=== PATIENT | female | born 1950 | race African-American/Black ===

== ENCOUNTER 2017-12-31 08:06 | Outpatient (CLI) | payer MEDICARE, MEDICAID ==
--- NOTE | 2017-12-31 10:49 | CT ---
CT ABDOMEN AND PELVIS WITH CONTRAST: Date: 12/31/17 HISTORY: Weight loss. Diarrhea. COMPARISON: CT from 2009. 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 These do not measure over 4.0 cm, although the intrapolar right angiomyolipoma measures up to 3.3 cm, similar to the comparison examination. The mildly complex renal cysts in the left kidney are mildly increased in size. Cyst inferior pole right kidney also mi ldly increased in size. Splenic hypodensity is mildly increased in size. No dilated loops of large or small bowel. No free intraperitoneal gas or fluid. Mild diverticular dis ease of the sigmoid colon without active inflammation. The aortoiliac contour is nonaneurysmal. Advanced facet arthropathy of the lower lumbar spine L3-4, L 4-5, and L5-S1. The lung bases are clear. No pericardial effusion. IMPRESSION: 1. Mild size increased of the hypodensities of both kidneys. These may represent enlarging benign cy sts, although due to increase in size and low grade heterogeneity, follow-up MRI renal protocol in 6 months to 1 year is recommended. 2. Similar size of largest right renal angiomyolipoma. 3. Mild diverticular disease sigmoid colon without active current inflammation. 4. Advanced facet arthropathy lower lumbar spine. POS: DEEPAK
== END 2017-12-31 08:07 | disposition home or self-care (01) ==
LOC: CT 08:06
PROVIDERS: ATTEND Internal Medicine Gastroenterology
DX: R63.4 Abnormal weight loss (principal); R10.10 Upper abdominal pain, unspecified; R19.7 Diarrhea, unspecified; R11.0 Nausea; E11.69 Type 2 diabetes mellitus with other specified complication; D17.71 Benign lipomatous neoplasm of kidney; K57.30 Diverticulosis of large intestine without perforation or abscess without bleeding; M46.96 Unspecified inflammatory spondylopathy, lumbar region
CPT/HCPCS: 74177; 82565

== ENCOUNTER 2018-09-20 10:41 | Outpatient (CLI) | payer MEDICARE, MEDICAID ==
--- NOTE | 2018-09-20 13:33 | ULT ---
STANDARD BILATERL RENAL ULTRASOUND: HISTORY: Followup. COMPARISON: CT from 12/31/2017. TECHNIQUE: Real-time, pugh-scale, and color evaluation of the kidneys and urinary bladder is performed. FINDINGS: The right kidney measures 12.6 x 7.2 x 6 cm. The left kidney measures 11.1 x 6 x 6 cm. Right renal angiomyolipoma is similar in size, measuring up to 3.1 cm. Multiple cysts, inferior pole, right kidn ey, largest measuring up to 2.8 cm. These are similar. The left interpolar 3.8 cm cyst is similar. The left renal AML is not well seen. IMPRESSION: Similar appearance of the right renal angiomyolipoma, as well as bilateral cysts. POS: DEEPAK
== END 2018-09-20 10:42 | disposition home or self-care (01) ==
LOC: BICULT 10:41
PROVIDERS: ATTEND Physician Assistant Medical
DX: K58.9 Irritable bowel syndrome, unspecified (principal); R93.5 Abnormal findings on diagnostic imaging of other abdominal regions, including retroperitoneum; N28.1 Cyst of kidney, acquired; D17.71 Benign lipomatous neoplasm of kidney
CPT/HCPCS: 76770

== ENCOUNTER 2020-01-31 13:12 | Inpatient (IN) | payer MEDICARE, MEDICAID, OTHER ==
[2020-01-31] MEDS ORDERED: Azithromycin 250 MG TAB ONE (13:55)
[2020-01-31] MEDS ORDERED: cefTRIAXone\\ROCEPHIN 2 GM VIAL ONE (13:55)
[2020-01-31] MEDS ORDERED: Azithromycin 500 MG VIAL ONE (13:59)
[2020-01-31 14:21] LABS: #Eosinphils 0.1 thou/uL (0.0-0.7); #Lymphocytes 1.3 thou/uL (1.20-3.40); #Monocytes 0.6 thou/uL (0.11-0.59); #Neutrophils 7.1 thou/uL (1.40-6.50); %Basophils 0.1 % (0.0-1.0); %Eosinophils 0.8 % (0.0-10.0); %Lymphocytes 14.4 % (21.0-51.0); %Monocytes 6.6 % (0.0-10.0); %Neutrophils 78.1 % (42.0-75.0); Hemoglobin 11.8 g/dL (12.0-16.0); Mean Corpuscular HGB CONC 31.5 g/dL (32.0-36.0); Mean Corpuscular Hemoglobin 25.7 pg (27.0-31.0); Mean Corpuscular Volume 81.8 fL (78.0-98.0); Mean Platelet Volume 8.1 fL (7.4-10.4); Platelet Count 429 thou/uL (130-400); RBC Distribution Width 14.4 % (11.5-14.5); Red Blood Cell (RBC) Count 4.59 mill/uL (4.20-5.40)
--- NOTE | 2020-01-31 14:49 | RAD ---
PORTABLE CHEST ONE VIEW: 01/31/20 at 2:34 p.m. HISTORY: Cough, generalized weakness. FINDINGS/IMPRESSION: The heart size is enlarged. There are bibasilar infiltrates and probable accompanying small effusions . No pneumothoraces are seen. POS: OFF
[2020-01-31 14:51] LABS: ALT (SGPT) 13 U/L (8-55); AST (SGOT) 21 U/L (5-34); Albumin 3.6 g/dL (3.4-4.8); Alkaline Phosphatase 102 U/L (40-110); Anion Gap 18 mmol/L (10-20); BUN (Urea Nitrogen) 19 mg/dL (9.8-20.1); Bilirubin, Total 0.6 mg/dL (0.2-1.2); Calc. Creatinine Clearance 0 mL/min (70-130); Calcium 8.9 mg/dL (7.8-10.44); Carbon Dioxide 25 mmol/L (23-31); Chloride 101 mmol/L (98-107); Estimated GFR-MDRD 53; Globulin 4.5 g/dL (2.4-3.5); Glucose 245 mg/dL (80-115); Lipase 17 U/L (8-78); Potassium 3.3 mmol/L (3.5-5.1); Protein, Total 8.1 g/dL (6.0-8.3); Sodium 141 mmol/L (136-145)
[2020-01-31 17:24] LABS: Bilirubin Negative (Negative); Blood, Urine Negative (Negative); Clarity Clear (Clear); Glucose, Urine (Dipstick) Normal (Negative); Ketone, Urine 20 mg/dL (Negative); Leukocyte 25 Leu/uL (Negative); Nitrite Negative (Negative); Protein, Urine (Dipstick) 70 mg/dL (Neg-Trace); RBC/HPF 0-3 HPF (0-3); Squamous Epithelial 0-3 HPF (0-3); pH, Urine 5.5 (5.0-9.0)
[2020-01-31 17:26] LABS: Bacteria/HPF 1+ HPF (None Seen)
[2020-01-31] MEDS ORDERED: Acetaminophen 650 MG Suppository PR PRN (17:34)
[2020-01-31] MEDS ORDERED: Calcium Carbonate 500 MG ChewTAB PO PRN (17:34)
[2020-01-31] MEDS ORDERED: Ondansetron PF 4 MG/2 ML Vial IVP PRN (17:34)
[2020-01-31] MEDS ORDERED: Senokot S 8.6-50 MG TAB PO PRN (17:34)
[2020-01-31] MEDS ORDERED: Ondansetron ODT 4 MG TAB PO PRN (17:34)
[2020-01-31] MEDS ORDERED: Dextrose 5% in Water 1,000 ML IV PRN (17:40)
[2020-01-31] MEDS ORDERED: Dextrose 50% Abboject 50 ML SYRINGE SLOW IVP PRN (17:40)
[2020-01-31] MEDS ORDERED: HumaLOG 300 UNITS/3 ML VIAL SC PRN (17:40)
--- NOTE | 2020-01-31 18:52 | HP ---
PRIMARY CARE PHYSICIAN: None. HISTORY OF PRESENT ILLNESS: The patient is a 69-year-old female with a past medical history significant for hypertension, hyperlipidemia, diabetes 2, noninsulin dependent, and GERD, who presents to the ER for the above complaint. The patient reports over the past several weeks having increased generalized weakness and some abdominal discomfort. She reports that she was diagnosed with bronchitis approximately 2 weeks ago. She was placed on amoxicillin 875, a 10-day course twice a day, which she has not completed yet. She reports that she forgets to take the medication sometimes because she just feels so bad. She reports associated decreased appetite and some shortness of breath. She denies any chest pain, heart palpitations or swelling to her lower extremities. She denies any fever or chills. She denies any nausea, vomiting, diarrhea or any dysuria. Her family called EMS. When EMS presented on the scene, the patient had a stable blood pressure, was afebrile. She was tachycardic at 107 with a SpO2 of 98% on room air. In the ER , the patient was afebrile, stable blood pressure, tachycardic 106, tachypneic, 22 respirations per minute, 99% on room air, 8/10 pain. EKG was sinus tach, 105 heart rate, with right bundle-branch block. Troponin was 0.019. Chest x-ray was positive for bibasilar infiltrates. WBCs were 9 and lactic acid of 1.1. The patient was given 1 L of normal saline, Rocephin, and azithromycin IV piggyback and will be admitted to the floor. PAST MEDICAL HISTORY: 1. Hypertension. 2. Hyperlipidemia. 3. Diabetes type 2, non-insulin dependent. 4. GERD. 5. Osteoarthritis. PAST SURGICAL HISTORY: 1. Partial hysterectomy. 2. . 3. Neck tumor surgery. SOCIAL HISTORY: The patient lives with family at home. She has no history of smoking, illicit drug use or alcohol intake. She ambulates without any assistive devices. FAMILY HISTORY: Contributory for hypertension, contributory for cardiac disease , contributory for diabetes. ALLERGIES: 1. IODINE. 2. TRAMADOL. HOME MEDICATIONS: 1. [place] 7.5mg/325mg one tab p.o. daily. 2. ProAir HFA 90 mcg inhaler 2 puffs q.4 p.r.n. shortness of breath and wheezing. 3. Amlodipine 5 mg p.o. daily. 4. Aspirin 81 mg p.o. daily. 5. Crestor 10 mg p.o. daily. 6. Glipizide/metformin 5/500 mg 2 tabs p.o. b.i.d. REVIEW OF SYSTEMS: All review of systems are negative unless otherwise stated in HPI. PHYSICAL EXAMINATION: VITAL SIGNS: Temperature 98.6, blood pressure 142/83, pulse 100, respirations 20, 100% on room, and 0/10 pain. CONSTITUTIONAL: The patient is alert and oriented to person, place, and time. Uncomfortable, but nontoxic in appearance. HEAD: Atraumatic and normocephalic. EYES: PERRLA. Extraocular muscles intact. Sclerae nonicteric. NECK: Full range of motion. No cervical spinous tenderness. No JVD. No cervical adenopathy. ENT: EACs patent bilaterally. TMs intact. Nares patent bilaterally. Oropharynx is clear. Uvula midline. Tacky mucous membranes. No oral lesions. RESPIRATORY/CHEST: Respirations are even. Nonlabored. Diminished in the bilateral lower lobes. No rhonchi, wheezes or rales. CARDIOVASCULAR: S1 and S2 appreciated. No murmurs, rubs or gallops. ABDOMEN: Abdomen is soft and nontender. Active bowel sounds. No guarding. No rigidity. No rebound. Negative Rovsing sign. Negative Paris sign. BACK: Full range of motion. No central spinous tenderness. No CVA tenderness. EXTREMITIES: Upper extremities; full range of motion, strength intact, sensation intact, palpable radial pulses. Lower extremities; full range of motion, normal strength, sensation intact, palpable pedal pulses, no swelling. NEUROLOGIC: The patient is alert and oriented to person, place, and time. Moves all extremities well. No focal motor deficits. Steady gait. PSYCHIATRIC: Normal affect. The patient is alert and oriented to person, place , and time. LABS AND DIAGNOSTICS: EKG was sinus tachycardia at 105, was an incomplete right bundle-branch block, no ST elevations. Chest x-ray was positive for bibasilar infiltrates. Sodium 141, potassium 3.3, chloride 101, carbon dioxide 25, BUN 19 , creatinine 1.23, and glucose 245. Lactic acid 1.1, total bilirubin 0.6, AST 21 , ALT 13, and alk phos 102. Troponin 0.019. Lipase is 17. WBCs 9, hemoglobin 11.8, hematocrit 37.5, and platelets 429. IMPRESSION AND PLAN: 1. Community-acquired pneumonia. We will admit the patient to medical floor inpatient status. Expected length of stay at least 2 midnights. The patient presented status post bronchitis for the past 2 weeks on amoxicillin, failed outpatient therapy. In the ER, the patient was tachycardic and tachypneic with a normal O2 saturation. WBCs were 9. Lactic acid of 1.1. We will order blood and urine cultures. We will continue azithromycin and Rocephin IV piggyback. We will continue IV fluid resuscitation. COVID test is pending. We will place the patient on droplet precautions for now until it is ruled out. 2. Sepsis, likely secondary to problem #1. 3. Hypokalemia, 3.3, relatively low. We will recheck in the a.m. and we will check a magnesium level. 4. Acute kidney injury. The patient presented with a creatinine of 1.23, baseline appears to be about 1 to 1.1, so it is mild. We will give IV fluid resuscitation. Recheck in the a.m. 5. Diabetes type 2, non-insulin dependent. The patient reported with a blood glucose of 245. The patient takes oral glipizide and metformin combination. We will hold for now. We will start moderate sliding scale with a.c. and at bedtime Accu- Cheks. 6. Hypertension. The patient takes amlodipine at home. We will restart when reconciled by nursing. 7. Hyperlipidemia. The patient takes Crestor. We will restart home medication when reconciled by nursing. 8. Gastroesophageal reflux disease. We will place the patient on Pepcid b.i.d. 9. Heparin for deep venous thrombosis prophylaxis. 10. Pepcid for gastrointestinal prophylaxis. 11. The patient is a full code. Her medical contact is going to be her son, Danie Arellano, [phone]. 12. Discussed the case with Dr. Conway. Job ID: [id number] MTDD
[2020-01-31 19:26] LABS: Troponin I Less than 0.010 ng/mL (< 0.028)
[2020-01-31] MEDS ORDERED: Magnesium 2 GM/50 ML 2 GM in Premix Bag 1 BAG IVPB SCH (19:45)
[2020-01-31 20:05] VITALS: BMI 39.5
[2020-01-31] MEDS ORDERED: Potassium Chloride 20 MEQ TAB PO SCH (20:30)
[2020-01-31] MEDS ORDERED: Dexamethasone 4 mg/ml Vial SLOW IVP SCH (20:30)
[2020-01-31] MEDS: Sodium Chloride 0.9% 1,000 ML IV SCH (20:48)
[2020-01-31] MEDS: Acetaminophen 325 MG TAB PO PRN (20:49)
[2020-01-31] MEDS: Famotidine 20 MG TAB PO SCH (20:49)
[2020-01-31] MEDS: Guaifenesin DM 100-10/5 ML UDCUP PO PRN (20:50)
[2020-01-31] MEDS ORDERED: Heparin 5,000 UNITS/ML VIAL SC SCH (21:00)
[2020-01-31] MEDS ORDERED: Enoxaparin Sodium 40 MG/0.4 ML SYRINGE SC SCH (21:00)
[2020-01-31 21:37] LABS: Troponin I 0.013 ng/mL (< 0.028)
--- NOTE | 2020-01-31 23:05 | CT ---
CT CHEST WITHOUT CONTRAST CLINICAL INDICATION: Generalized weakness and cough. Recently diagnosed with bronchitis. Bilateral infiltrates. COMPARISON: CT abdomen on 12/31/2017 FINDINGS: Aorta: Lack of intravenous contrast limits evaluation of the vascular structures, but the thoracic ao rta is normal in caliber with vascular calcification seen. Coronary artery calcifications are also visualized. Lungs: There are multiple peripherally located patchy parenchymal densities seen throughout the lungs bilaterally. This finding was not seen on examination in 2018. Infectious process is suggested. Viral pneumonitis is a possibility. No pleural effusion is evident. Mediastinum: Limited evaluation due to lack of intravenous contrast, no definite enlarged mediastinal lymph nodes are appreciated. Thyroid gland: Normal nonenhanced appearance where seen. Osseous structures: Degenerative changes are present in the spine. Chest wall: No abnormality visualized. Upper abdomen: Grossly normal nonenhanced CT appearance. IMPRESSION: Patchy peripheral densities seen throughout the lungs are worrisome for infectious process and possib ly viral pneumonitis.
[2020-02-01] MEDS: Sodium Chloride 0.9% 1,000 ML IV SCH ×3 (01:19→14:18)
[2020-02-01] MEDS: HumaLOG 300 UNITS/3 ML VIAL SC PRN ×2 (05:56→11:07)
[2020-02-01 06:34] LABS: #Eosinphils 0.1 thou/uL (0.0-0.7); #Lymphocytes 1.6 thou/uL (1.20-3.40); #Monocytes 0.5 thou/uL (0.11-0.59); #Neutrophils 3.2 thou/uL (1.40-6.50); %Basophils 0.4 % (0.0-1.0); %Eosinophils 2.7 % (0.0-10.0); %Lymphocytes 28.9 % (21.0-51.0); %Monocytes 9.1 % (0.0-10.0); %Neutrophils 58.9 % (42.0-75.0); Hemoglobin 10.5 g/dL (12.0-16.0); Mean Corpuscular HGB CONC 30.5 g/dL (32.0-36.0); Mean Corpuscular Hemoglobin 24.9 pg (27.0-31.0); Mean Corpuscular Volume 81.6 fL (78.0-98.0); Mean Platelet Volume 8.1 fL (7.4-10.4); Platelet Count 435 thou/uL (130-400); RBC Distribution Width 14.5 % (11.5-14.5); White Blood Cell (WBC) Count 5.4 thou/uL (4.8-10.8)
[2020-02-01 07:01] LABS: Anion Gap 12 mmol/L (10-20); BUN (Urea Nitrogen) 15 mg/dL (9.8-20.1); Calc. Creatinine Clearance 108 mL/min (70-130); Calcium 8.3 mg/dL (7.8-10.44); Carbon Dioxide 26 mmol/L (23-31); Chloride 105 mmol/L (98-107); Estimated GFR-MDRD 77; Glucose 181 mg/dL (80-115); Potassium 3.4 mmol/L (3.5-5.1); Sodium 140 mmol/L (136-145)
[2020-02-01] MEDS: Famotidine 20 MG TAB PO SCH ×2 (08:27→20:39)
[2020-02-01] MEDS: Saccharomyces boulardii 250 MG CAP PO SCH (08:27)
[2020-02-01] MEDS: Acetaminophen 325 MG TAB PO PRN (11:07)
[2020-02-01] MEDS ORDERED: cefTRIAXone\\ROCEPHIN 1 GM in Sodium Chloride 0.9% 100 ML IVPB SCH (14:00)
--- NOTE | 2020-02-01 14:09 | CON ---
DATE OF CONSULTATION: 02/01/2020 REASON FOR CONSULTATION: COVID pneumonia. HISTORY OF PRESENT ILLNESS: A 69-year-old with history of type 2 diabetes, hypertension, and hyperlipidemia, who has been sick with respiratory symptoms, anorexia, and nausea for the past week, failed antimicrobial therapy in the outpatient setting, was admitted as a COVID positive test, feeling better now. No headaches. She has good sense of smell and she is not dyspneic. She is able to speak in full sentences. No abdominal pain. No dysuria. No joint symptoms or skin disorder. No neurological symptoms. PAST MEDICAL HISTORY: 1. Type 2 diabetes. 2. GERD. 3. Hyperlipidemia. 4. Hypertension. SURGICAL HISTORY: 1. Neck mass removed, benign. 2. . 3. Hysterectomy. SOCIAL HISTORY: Lives in [place]. Never smoker. Does not drink alcoholic beverages. ALLERGIES: IODINE AND TRAMADOL. MEDICATIONS: 1. P.r.n. medications. 2. Azithromycin. 3. Rocephin. 4. Enoxaparin. 5. Glucagon. 6. Insulin. 7. Ondansetron. PHYSICAL EXAMINATION: VITAL SIGNS: She is afebrile now, T-max was 99.5, BP 150/70, pulse 91, breathing 16 times a minute, O2 sats started at 100 on room air and now down to 93 on room air. GENERAL: She appears in no distress. SKIN: Normal. There is no lymphadenopathy. HEENT: Ocular movements conjugate. Oral cavity with quite a few missing teeth. Oral mucosa is normal. NECK: Supple. No jugular vein distention. LUNGS: Fairly clear breath sounds. HEART: S1 and S2. Regular rate. No S3 or S4. ABDOMEN: Soft, not distended or tender. No ascites. No bladder distention. EXTREMITIES: No joint inflammatory activity. Pulses are 1+ in dorsalis pedis. Moves extremities equally. NEUROLOGIC: She is awake, oriented, follows commands. Good recollection. Speech is normal. No delusional thinking process. LABORATORY STUDIES: White cell count 9.0 and 5.4, hemoglobin 11.8, platelets 429, 78% neutrophils, and lymphocyte count is 1.6. D-dimer 0.96. CRP 23. Ferritin 580. COVID positive. Urinalysis with 4 to 6 wbc's. A chest x-ray with bibasilar infiltrates. CT of chest with patchy peripheral densities. ASSESSMENT: 1. Hypertension. 2. Diabetes. 3. COVID pneumonia, mild. DISCUSSION: The patient fits the category for mild COVID infection. Her chance for deterioration to critical in the next few days is about 59% to 60% and will need to closely monitor her O2 needs and start Decadron and remdesivir accordingly. If she has remained stable, she will be eligible for discharge planning. Continue monitoring inflammatory markers. Job ID: [id number]
[2020-02-01] MEDS ORDERED: Azithromycin 500 MG in Sodium Chloride 0.9% 250 ML 250 ML IVPB SCH (15:00)
--- NOTE | 2020-02-01 18:08 | PDOC.HOSPP ---
- Subjective Encounter Date: 02/01/20 Encounter Time: 14:00 Subjective: Patient seen and examined for COVID Pneumonia. Cough with mild production. SOB on exertion. No CP. No new complaints. No overnight events - Objective Vital Signs & Weight: Vital Signs (12 hours) Temp Pulse Resp BP Pulse Ox 02/01/20 16:00 98 F 89 18 172/79 H 94 L 02/01/20 08:00 98.6 F 83 16 167/79 H 93 L Weight Weight 245 lb 1 oz I&O: 01/31/20 02/01/20 02/02/20 06:59 06:59 06:59 Intake Total 1605 1800 Balance 1605 1800 Result Diagrams: 02/01/20 05:54 02/01/20 05:55 Additional Labs: Accuchecks 02/01/20 02/01/20 02/01/20 16:33 11:03 04:55 POC Glucose 142 H 207 H 191 H 01/31/20 20:59 POC Glucose 177 H Microbiology 01/31/20 16:55 Urine clean catch Urine Culture - Preliminary 01/31/20 13:57 Venous blood - Right Hand Blood Culture - Preliminary Specimen has been received and culture in progress. No Growth to date. 01/31/20 13:57 Venous blood - Left Hand Blood Culture - Preliminary Specimen has been received and culture in progress. No Growth to date. Laboratory Tests 01/31/20 01/31/20 01/31/20 13:59 16:54 21:01 D-Dimer Potassium 3.3 L Ferritin C-Reactive Protein 23.60 H Procalcitonin SARS-CoV-2 Rap RNA(RT-PCR) DETECTED A* 01/31/20 01/31/20 02/01/20 21:01 21:01 05:54 D-Dimer 0.96 H Potassium Ferritin 580.30 H C-Reactive Protein Procalcitonin 0.10 SARS-CoV-2 Rap RNA(RT-PCR) Radiology Reviewed by me: Yes (CT chest - Pneumonia) Hospitalist ROS - Review of Systems Cardiovascular: denies: chest pain, palpitations, orthopnea, paroxysmal noc. dyspnea, edema, light headedness, other Gastrointestinal: denies: nausea, vomiting, abdominal pain, diarrhea, constipation, melena, hematochezia, other - Medication Medications: Active Medications Generic Name Dose Route Start Last Admin Trade Name Freq PRN Reason Stop Dose Admin Acetaminophen 650 mg 01/31/20 17:34 02/01/20 11:07 Tylenol PO 650 mg Q4H PRN Administration Headache/Fever/Mild Pain (1-3) Enoxaparin Sodium 40 mg 01/31/20 21:00 01/31/20 20:49 Lovenox SC 40 mg 2100 RHONDA Administration Famotidine 20 mg 01/31/20 21:00 02/01/20 08:27 Pepcid PO 20 mg BID RHONDA Administration Guaifenesin/Dextromethorphan 15 ml 01/31/20 17:34 01/31/20 20:50 Robitussin Dm PO 15 ml Q4H PRN Administration Cough Insulin Human Lispro 0 units 01/31/20 17:40 02/01/20 11:07 Humalog SC 2 unit .MODERATE SLIDING SC PRN Administration Moderate Correctional Scale Saccharomyces Boulardii 250 mg 02/01/20 09:00 02/01/20 08:27 Florastor PO 250 mg DAILY RHONDA Administration - Exam General Appearance: ill appearing Neck: supple, no JVD Heart: RRR, no gallops, no rubs, normal peripheral pulses Respiratory: no ronchi, normal chest expansion, rales, rhonchi Gastrointestinal: soft, non-tender, non-distended, normal bowel sounds Extremities: no cyanosis, no clubbing, no edema Skin: normal turgor, no lesions Neurological: no new deficit Psychiatric: normal affect, A&O x 3 Hosp A/P - Plan DVT proph w/lovenox (bid), DVT proph w/SCDs Sepsis due to COVID Pneumonia - POA LYNNETTE on CKD 2 UTI Hypokalemia Hypomagnsemia Obesity BMI 39.6 HTN HLD DM2 GERD Chronic pain syndrome PLAN: DC IVF Restart home meds including ASA, Amlodipine and diabetic meds ID input appreciated Replace Potassium Atbx for UTI Monitor infl markers AM labs Cont other meds as above Change Lovenox to BID due to high risk of DVT with COVID Cont sliding scale
[2020-02-01] MEDS ORDERED: HYDROcodone/Acetaminophen 7.5/325 mg Tablet PO PRN (18:23)
[2020-02-01] MEDS ORDERED: PROVENTIL INHALER 6.7 G (200 INHALATIONS) INH PRN (18:23)
[2020-02-01] MEDS ORDERED: hydrALAZINE 20 MG/ML VIAL SLOW IVP PRN (18:25)
[2020-02-01] MEDS ORDERED: Amlodipine 5 MG TAB PO SCH (18:45)
[2020-02-01] MEDS: Cefdinir 300 MG CAP PO SCH (20:38)
[2020-02-01] MEDS: Ascorbic Acid 500 mg Chewable Tablet PO SCH (20:38)
[2020-02-01] MEDS: Enoxaparin Sodium 40 MG/0.4 ML SYRINGE SC SCH (20:39)
[2020-02-01] MEDS: guaiFENesin ER 600 MG TAB PO SCH (20:39)
[2020-02-01] MEDS: Guaifenesin DM 100-10/5 ML UDCUP PO PRN (20:40)
[2020-02-01] MEDS: Zinc Sulfate 220 MG CAP PO SCH (20:40)
[2020-02-01] MEDS ORDERED: Dexamethasone 4 mg/ml Vial SLOW IVP SCH (21:00)
[2020-02-01] MEDS ORDERED: Prevnar 13-Val Conj/PF 0.5 ML SYRINGE IM ONE (21:00)
[2020-02-02 05:38] LABS: #Basophils 0.1 thou/uL (0.0-0.2); #Eosinphils 0.3 thou/uL (0.0-0.7); #Lymphocytes 2.2 thou/uL (1.20-3.40); #Monocytes 0.6 thou/uL (0.11-0.59); #Neutrophils 3.6 thou/uL (1.40-6.50); %Basophils 0.8 % (0.0-1.0); %Eosinophils 4.9 % (0.0-10.0); %Lymphocytes 32.3 % (21.0-51.0); %Monocytes 8.4 % (0.0-10.0); %Neutrophils 53.6 % (42.0-75.0); Hemoglobin 10.8 g/dL (12.0-16.0); Mean Corpuscular HGB CONC 30.9 g/dL (32.0-36.0); Mean Corpuscular Hemoglobin 25.5 pg (27.0-31.0); Mean Corpuscular Volume 82.7 fL (78.0-98.0); Mean Platelet Volume 7.6 fL (7.4-10.4); Platelet Count 506 thou/uL (130-400); RBC Distribution Width 14.4 % (11.5-14.5); Red Blood Cell (RBC) Count 4.24 mill/uL (4.20-5.40); White Blood Cell (WBC) Count 6.8 thou/uL (4.8-10.8)
[2020-02-02 05:58] LABS: ALT (SGPT) 11 U/L (8-55); AST (SGOT) 20 U/L (5-34); Albumin 3.3 g/dL (3.4-4.8); Alkaline Phosphatase 96 U/L (40-110); Anion Gap 13 mmol/L (10-20); BUN (Urea Nitrogen) 8 mg/dL (9.8-20.1); Bilirubin, Total 0.4 mg/dL (0.2-1.2); CRP (Inflammatory) 15.27 mg/dL (= or < 0.5); Calc. Creatinine Clearance 115 mL/min (70-130); Calcium 8.6 mg/dL (7.8-10.44); Carbon Dioxide 25 mmol/L (23-31); Chloride 106 mmol/L (98-107); Estimated GFR-MDRD 83; Glucose 127 mg/dL (80-115); Potassium 3.4 mmol/L (3.5-5.1); Protein, Total 7.3 g/dL (6.0-8.3); Sodium 141 mmol/L (136-145)
[2020-02-02 06:24] VITALS: TEMP 98.5
[2020-02-02] MEDS ORDERED: METFORMIN HCL PO SCH (08:00)
[2020-02-02] MEDS ORDERED: GLIPIZIDE PO SCH (08:00)
[2020-02-02] MEDS: Aspirin 81 mg Enteric Coated Tablet PO SCH (08:47)
[2020-02-02] MEDS: Cefdinir 300 MG CAP PO SCH ×2 (08:47→20:36)
[2020-02-02] MEDS: Famotidine 20 MG TAB PO SCH ×2 (08:48→20:36)
[2020-02-02] MEDS: Amlodipine 5 MG TAB PO SCH (08:49)
[2020-02-02] MEDS: guaiFENesin ER 600 MG TAB PO SCH ×2 (08:49→20:36)
[2020-02-02] MEDS: Rosuvastatin 10 MG TAB PO SCH (08:49)
[2020-02-02] MEDS: Saccharomyces boulardii 250 MG CAP PO SCH (08:50)
[2020-02-02] MEDS: metFORMIN 500 MG TAB PO SCH ×2 (08:50→16:38)
[2020-02-02] MEDS: glipiZIDE 5 MG TAB PO SCH ×2 (08:51→16:38)
[2020-02-02] MEDS: Enoxaparin Sodium 40 MG/0.4 ML SYRINGE SC SCH (08:51)
--- NOTE | 2020-02-02 18:40 | PDOC.HOSPP ---
- Subjective Encounter Date: 02/02/20 Encounter Time: 15:30 Subjective: Patient seen and examined for Sepsis. Feeling better. Mild cough. Mild SOB on exertion. No other complaints. No overnight events - Objective Vital Signs & Weight: Vital Signs (12 hours) Temp Pulse Resp BP Pulse Ox 02/02/20 08:49 90 02/02/20 08:00 98.5 F 90 18 146/79 H 98 Weight Weight 245 lb 1 oz I&O: 02/01/20 02/02/20 02/03/20 06:59 06:59 06:59 Intake Total 1605 2280 Balance 1605 2280 Result Diagrams: 02/03/20 06:20 02/03/20 06:20 Additional Labs: Accuchecks 02/02/20 02/02/20 02/02/20 16:36 12:56 06:16 POC Glucose 215 H 127 H 150 H 02/01/20 20:52 POC Glucose 140 H Laboratory Tests 01/31/20 01/31/20 02/02/20 21:01 21:01 05:19 Ferritin 580.30 H C-Reactive Protein 23.60 H 15.27 H 02/02/20 05:19 Ferritin 574.53 H C-Reactive Protein Radiology Reviewed by me: Yes (Chest CT - Pneumonia) Hospitalist ROS - Review of Systems Cardiovascular: denies: chest pain, palpitations, orthopnea, paroxysmal noc. dyspnea, edema, light headedness, other Gastrointestinal: denies: nausea, vomiting, abdominal pain, diarrhea, constipation, melena, hematochezia, other - Medication Medications: Active Medications Generic Name Dose Route Start Last Admin Trade Name Yfnq PRN Reason Stop Dose Admin Acetaminophen 650 mg 01/31/20 17:34 02/01/20 11:07 Tylenol PO 650 mg Q4H PRN Administration Headache/Fever/Mild Pain (1-3) Amlodipine Besylate 5 mg 02/02/20 09:00 02/02/20 08:49 Norvasc PO 5 mg DAILY RHONDA Administration Ascorbic Acid 1,000 mg 02/01/20 21:00 02/01/20 20:38 Vitamin C PO 1,000 mg HS RHONDA Administration Aspirin 81 mg 02/02/20 09:00 02/02/20 08:47 Ecotrin PO 81 mg DAILY RHONDA Administration Cefdinir 300 mg 02/01/20 21:00 02/02/20 08:47 Omnicef PO 02/03/20 21:01 300 mg BID RHONDA Administration Enoxaparin Sodium 40 mg 02/01/20 21:00 02/02/20 08:51 Lovenox SC 40 mg 0900,2100 RHONDA Administration Famotidine 20 mg 01/31/20 21:00 02/02/20 08:48 Pepcid PO 20 mg BID RHONDA Administration Glipizide 5 mg 02/02/20 08:00 02/02/20 16:38 Glucotrol PO 5 mg BID-WM RHONDA Administration Guaifenesin 600 mg 02/01/20 21:00 02/02/20 08:49 Mucinex PO 600 mg Q12HR RHONDA Administration Guaifenesin/Dextromethorphan 15 ml 01/31/20 17:34 02/01/20 20:40 Robitussin Dm PO 15 ml Q4H PRN Administration Cough Insulin Human Lispro 0 units 01/31/20 17:40 02/01/20 11:07 Humalog SC 2 unit .MODERATE SLIDING SC PRN Administration Moderate Correctional Scale Metformin HCl 500 mg 02/02/20 08:00 02/02/20 16:38 Glucophage PO 500 mg BID-WM RHONDA Administration Ondansetron HCl 4 mg 01/31/20 17:34 02/01/20 20:41 Zofran IVP 4 mg Q6H PRN Administration Nausea/Vomiting Rosuvastatin Calcium 10 mg 02/02/20 09:00 02/02/20 08:49 Crestor PO 10 mg DAILY RHONDA Administration Saccharomyces Boulardii 250 mg 02/01/20 09:00 02/02/20 08:50 Florastor PO 250 mg DAILY RHONDA Administration Zinc Sulfate 220 mg 02/01/20 21:00 02/01/20 20:40 Zinc Sulfate PO 220 mg HS RHONDA Administration - Exam General Appearance: NAD Heart: RRR, no gallops Respiratory: no wheezes, no rales, rhonchi Gastrointestinal: soft, non-distended, normal bowel sounds Extremities: no cyanosis, no clubbing Neurological: no new deficit Hosp A/P - Plan DVT proph w/lovenox, DVT proph w/SCDs Sepsis due to COVID Pneumonia - symptom onset 01/19 LYNNETTE on CKD 2 UTI Hypokalemia Hypomagnsemia Obesity BMI 39.6 HTN HLD DM2 GERD Chronic pain syndrome PLAN: Pt on RA No Dexamethasone/Remdesivir for now Cont Omnicef for UTI for total 3 days Monitor infl markers - improving Cont sliding scale AM labs Cont other meds as above Cont Lovenox
[2020-02-02] MEDS: Ascorbic Acid 500 mg Chewable Tablet PO SCH (20:35)
[2020-02-02] MEDS: Zinc Sulfate 220 MG CAP PO SCH (20:36)
[2020-02-02 22:28] VITALS: BP 130/83
[2020-02-03 07:01] LABS: #Eosinphils 0.3 thou/uL (0.0-0.7); #Lymphocytes 1.6 thou/uL (1.20-3.40); #Monocytes 0.5 thou/uL (0.11-0.59); #Neutrophils 4.6 thou/uL (1.40-6.50); %Basophils 0.1 % (0.0-1.0); %Eosinophils 4.6 % (0.0-10.0); %Lymphocytes 22.8 % (21.0-51.0); %Monocytes 6.5 % (0.0-10.0); %Neutrophils 66.1 % (42.0-75.0); Hemoglobin 10.3 g/dL (12.0-16.0); Mean Corpuscular HGB CONC 31.7 g/dL (32.0-36.0); Mean Corpuscular Hemoglobin 25.9 pg (27.0-31.0); Mean Corpuscular Volume 81.6 fL (78.0-98.0); Mean Platelet Volume 7.5 fL (7.4-10.4); Platelet Count 543 thou/uL (130-400); RBC Distribution Width 14.5 % (11.5-14.5); Red Blood Cell (RBC) Count 3.99 mill/uL (4.20-5.40)
[2020-02-03 07:29] LABS: ALT (SGPT) 10 U/L (8-55); AST (SGOT) 14 U/L (5-34); Albumin 3.1 g/dL (3.4-4.8); Alkaline Phosphatase 90 U/L (40-110); Anion Gap 12 mmol/L (10-20); BUN (Urea Nitrogen) 6 mg/dL (9.8-20.1); Bilirubin, Total 0.5 mg/dL (0.2-1.2); Calc. Creatinine Clearance 111 mL/min (70-130); Calcium 8.4 mg/dL (7.8-10.44); Carbon Dioxide 25 mmol/L (23-31); Chloride 105 mmol/L (98-107); Estimated GFR-MDRD 80; Globulin 3.9 g/dL (2.4-3.5); Glucose 117 mg/dL (80-115); Potassium 3.1 mmol/L (3.5-5.1); Sodium 139 mmol/L (136-145)
[2020-02-03] MEDS: Saccharomyces boulardii 250 MG CAP PO SCH (08:02)
[2020-02-03] MEDS: Rosuvastatin 10 MG TAB PO SCH (08:02)
[2020-02-03] MEDS: Famotidine 20 MG TAB PO SCH (08:02)
[2020-02-03] MEDS: Aspirin 81 mg Enteric Coated Tablet PO SCH (08:02)
[2020-02-03] MEDS: metFORMIN 500 MG TAB PO SCH (08:02)
[2020-02-03] MEDS: Amlodipine 5 MG TAB PO SCH (08:02)
[2020-02-03] MEDS: guaiFENesin ER 600 MG TAB PO SCH (08:02)
[2020-02-03] MEDS: glipiZIDE 5 MG TAB PO SCH (08:02)
[2020-02-03] MEDS: Cefdinir 300 MG CAP PO SCH (08:02)
--- NOTE | 2020-02-03 08:02 | PDOC.HOSPP ---
- Subjective Encounter Date: 02/03/20 - Objective Vital Signs & Weight: Weight Weight 245 lb 1 oz I&O: 02/02/20 02/03/20 02/04/20 06:59 06:59 06:59 Intake Total 2280 800 Balance 2280 800 Result Diagrams: 02/03/20 06:20 02/03/20 06:20 Additional Labs: Accuchecks 02/03/20 02/02/20 02/02/20 05:43 20:44 16:36 POC Glucose 125 H 100 215 H 02/02/20 12:56 POC Glucose 127 H Hospitalist ROS - Medication Medications: Active Medications Generic Name Dose Route Start Last Admin Trade Name Freq PRN Reason Stop Dose Admin Acetaminophen 650 mg 01/31/20 17:34 02/01/20 11:07 Tylenol PO 650 mg Q4H PRN Administration Headache/Fever/Mild Pain (1-3) Amlodipine Besylate 5 mg 02/02/20 09:00 02/02/20 08:49 Norvasc PO 5 mg DAILY RHONDA Administration Ascorbic Acid 1,000 mg 02/01/20 21:00 02/02/20 20:35 Vitamin C PO 1,000 mg HS RHONDA Administration Aspirin 81 mg 02/02/20 09:00 02/02/20 08:47 Ecotrin PO 81 mg DAILY RHONDA Administration Cefdinir 300 mg 02/01/20 21:00 02/02/20 20:36 Omnicef PO 02/03/20 21:01 300 mg BID RHONDA Administration Famotidine 20 mg 01/31/20 21:00 02/02/20 20:36 Pepcid PO 20 mg BID RHONDA Administration Glipizide 5 mg 02/02/20 08:00 02/02/20 16:38 Glucotrol PO 5 mg BID-WM RHONDA Administration Guaifenesin 600 mg 02/01/20 21:00 02/02/20 20:36 Mucinex PO 600 mg Q12HR RHONDA Administration Guaifenesin/Dextromethorphan 15 ml 01/31/20 17:34 02/01/20 20:40 Robitussin Dm PO 15 ml Q4H PRN Administration Cough Insulin Human Lispro 0 units 01/31/20 17:40 02/01/20 11:07 Humalog SC 2 unit .MODERATE SLIDING SC PRN Administration Moderate Correctional Scale Metformin HCl 500 mg 02/02/20 08:00 02/02/20 16:38 Glucophage PO 500 mg BID-WM RHONDA Administration Ondansetron HCl 4 mg 01/31/20 17:34 02/01/20 20:41 Zofran IVP 4 mg Q6H PRN Administration Nausea/Vomiting Rosuvastatin Calcium 10 mg 02/02/20 09:00 02/02/20 08:49 Crestor PO 10 mg DAILY RHONDA Administration Saccharomyces Boulardii 250 mg 02/01/20 09:00 02/02/20 08:50 Florastor PO 250 mg DAILY RHONDA Administration Zinc Sulfate 220 mg 02/01/20 21:00 02/02/20 20:36 Zinc Sulfate PO 220 mg HS RHONDA Administration Hosp A/P - Plan Sepsis due to COVID Pneumonia - symptom onset 01/19 LYNNETTE on CKD 2 UTI Hypokalemia Hypomagnesemia Obesity BMI 39.6 HTN HLD DM2 GERD Chronic pain syndrome PLAN: Replace Potassium Cont to monitor No Dexamethasone/Remdesivir for now per ID Complete 3 days of Omnicef for UTI Cont sliding scale and other meds as above AM labs including CRP, Ferritin and D-dimer Cont Lovenox DC Planning - Will d/w ID
[2020-02-03] MEDS: Potassium Chloride 20 MEQ TAB PO SCH ×2 (08:04→11:57)
[2020-02-03] MEDS ORDERED: Enoxaparin Sodium 40 MG/0.4 ML SYRINGE SC SCH (09:00)
--- NOTE | 2020-02-03 17:47 | DIS ---
DATE OF ADMISSION: 01/31/2020 DATE OF DISCHARGE: 02/03/2020 DISCHARGE DISPOSITION: Home. FOLLOWUP: Follow up with primary care physician at [facility] in [place] in 1 week. The patient was evaluated on the day of discharge. Denies any new complaints. The patient is saturating 94% on room air. Her O2 sats remained stable even on ambulation. BRIEF HOSPITAL COURSE: The patient is a 69-year-old female with hypertension, hyperlipidemia, diabetes mellitus type 2, and GERD, presented to the emergency room with generalized weakness. She was diagnosed with bronchitis approximately 2 weeks ago. She completed amoxicillin recently. In the emergency room, she was tachypneic and tachycardic and her chest x-ray was consistent with bibasilar infiltrate. COVID testing came back positive. She was monitored closely. The patient was evaluated by Infectious Disease, Dr. Cruz. Dr. Cruz recommended close monitoring. Over the last 3 days, her O2 saturation have remained stable. Her inflammatory markers are improving. The patient is requesting to be discharged. She was advised to monitor pulse oximetry closely. She was advised to return to emergency room if she develops any hypoxemia. SIGNIFICANT LABORATORY DATA: D-dimer on admission 0.96, two days later, 0.76. CRP on admission was 23.6, two days later, was 15.2. Ferritin on admission was 580, two days later, was 574. The patient understands the above plan of care. FINAL DIAGNOSES: 1. Sepsis due to COVID-19 pneumonia. 2. Acute kidney injury on chronic kidney disease stage 2, improved. 3. Urinary tract infection. The patient completed 3-day course of antibiotics for cystitis. 4. Hypokalemia. 5. Hypomagnesemia. 6. Obesity with a BMI of 39.6. 7. Hypertension. 8. Hyperlipidemia. 9. Diabetes mellitus type 2. 10. Gastroesophageal reflux disease. 11. Chronic pain syndrome. The patient understands the above plan of care. Job ID: [id number]
== END 2020-02-03 17:16 | disposition home or self-care (01) | DRG 871 ==
LOC: ERS 13:12 → T4-A 16:54
PROVIDERS: ADMIT Pediatrics; ATTEND Pediatrics
PROC: 8E0ZXY6 Isolation (ICD-10-PCS; principal; 2020-01-31)
DX: A41.89 Other specified sepsis (principal); U07.1 COVID-19; J12.89 Other viral pneumonia; N17.9 Acute kidney failure, unspecified; N39.0 Urinary tract infection, site not specified; N18.2 Chronic kidney disease, stage 2 (mild); K21.9 Gastro-esophageal reflux disease without esophagitis; E11.22 Type 2 diabetes mellitus with diabetic chronic kidney disease; E78.5 Hyperlipidemia, unspecified; I12.9 Hypertensive chronic kidney disease with stage 1 through stage 4 chronic kidney disease, or unspecified chronic kidney disease; G89.4 Chronic pain syndrome; E83.42 Hypomagnesemia; I45.10 Unspecified right bundle-branch block; M19.90 Unspecified osteoarthritis, unspecified site; E87.6 Hypokalemia; E66.9 Obesity, unspecified; Z88.5 Allergy status to narcotic agent; Z91.041 Radiographic dye allergy status; Z90.710 Acquired absence of both cervix and uterus; Z79.84 Long term (current) use of oral hypoglycemic drugs; Z79.82 Long term (current) use of aspirin; Z79.51 Long term (current) use of inhaled steroids; Z79.899 Other long term (current) drug therapy; Z68.39 Body mass index [BMI] 39.0-39.9, adult
CPT/HCPCS: 36415; 36416; 71045; 71250; 80048; 80053; 81003; 81015; 82728; 83605; 83690; 83735; 83880; 84145; 84443; 84484; 85025; 85379; 86140; 87040; 87086; 93005; 94760; J0456; J0696; J1644; J1650; J2405; J3475; U0002